=== PATIENT | male | born 1980 | race Caucasian/White ===

== ENCOUNTER 2017-06-17 21:39 | Emergency (ER) | payer MEDICAID ==
[~2017-06-17] VITALS: Ht 175.3 cm; Wt 59.9 kg
[2017-06-17] MEDS ORDERED: AUGMENTIN 875-1 EACH PO (22:06)
== END 2017-06-17 22:19 | disposition home or self-care (01) ==
LOC: ED 21:39
DX: S51.851A Open bite of right forearm, initial encounter (principal); L08.9 Local infection of the skin and subcutaneous tissue, unspecified; Z23 Encounter for immunization; F17.200 Nicotine dependence, unspecified, uncomplicated; W55.01XA Bitten by cat, initial encounter
CPT/HCPCS: 90471; 90715; 99283

== ENCOUNTER 2023-02-28 18:09 | Emergency (ER) | payer SELFPAY ==
[~2023-02-28] VITALS: Ht 175.3 cm; Wt 61.2 kg
[~2023-02-28 18:09] MED LIST: AUGMENTIN 875-1 EACH PO
[2023-02-28] MEDS ORDERED: NAPROSYN500 MG PO (19:11)
[2023-02-28] MEDS ORDERED: CEPHALEXIN500 M1 PO (19:11)
[2023-02-28 19:29] VITALS: BP 126/65
== END 2023-02-28 19:29 | disposition home or self-care (01) ==
LOC: ED 18:09
DX: S81.852A Open bite, left lower leg, initial encounter (principal); W55.81XA Bitten by other mammals, initial encounter; F17.200 Nicotine dependence, unspecified, uncomplicated; Z23 Encounter for immunization
CPT/HCPCS: 90715; A9270